=== PATIENT | female | born 1990 | race Caucasian/White ===

== ENCOUNTER 2019-12-17 13:18 | Emergency (ER) | payer OTHER ==
--- NOTE | 2019-12-17 13:40 | TELE ---
HPI Do you have fever,cough or shortness of breath?: No - General Reason For Visit: COVID History Source: Patient Review of Systems - Review of Systems Constitutional: No: Chills, Fever Respiratory: No: Cough, Shortness of Breath Cardiac (ROS): No: Chest Pain - Medical Decision Making 12/17/19 13:40 29 yo F, no sig hx, called requesting covid PCR. No xs. Covid test ordered Discharge Diagnosis at time of Disposition: Encounter by telehealth for suspected COVID-19 - Referrals - Patient Instructions - Discharge Disposition: HOME
== END 2019-12-17 13:51 | disposition home or self-care (01) ==
LOC: JVIRT 13:18
DX: Z03.818 Encounter for observation for suspected exposure to other biological agents ruled out (principal)
CPT/HCPCS: C9803; Q3014-GT; U0003

== ENCOUNTER 2020-05-21 14:54 | Emergency (ER) | payer OTHER | END 2020-05-21 17:38 | disposition home or self-care (01) | LOC: JVIRT 14:54 | DX: Z20.828 Contact with and (suspected) exposure to other viral communicable diseases (principal) | CPT/HCPCS: 87070; 87880; C9803; Q3014-GT; U0003 ==

== ENCOUNTER 2020-10-20 22:47 | Emergency (ER) | payer OTHER ==
[2020-10-20 22:56] VITALS: BP 128/78; PULSE 89; TEMP 98.6; BMI 24.5
[2020-10-21 00:37] LABS: HIV INTERPRETATION NEGATIVE (NEGATIVE)
== END 2020-10-20 23:18 | disposition home or self-care (01) ==
LOC: JER 22:47
DX: Z77.21 Contact with and (suspected) exposure to potentially hazardous body fluids (principal)
CPT/HCPCS: 36415; 86803; 87389; 99283-25

== ENCOUNTER 2021-02-02 19:32 | Emergency (ER) | payer OTHER | END 2021-02-02 19:47 | disposition home or self-care (01) | LOC: JVIRT 19:32 | DX: Z11.52 Encounter for screening for COVID-19 (principal) | CPT/HCPCS: C9803; Q3014-GT; U0003; U0005 ==

== ENCOUNTER 2021-05-11 11:51 | Emergency (ER) | payer OTHER | END 2021-05-11 14:15 | disposition home or self-care (01) | LOC: JVIRT 11:51 | DX: Z11.52 Encounter for screening for COVID-19 (principal) | CPT/HCPCS: C9803; Q3014-GT; U0003; U0005 ==

== ENCOUNTER 2021-05-23 13:48 | Emergency (ER) | payer OTHER | END 2021-05-23 13:57 | disposition home or self-care (01) | LOC: JVIRT 13:48 | DX: U07.1 COVID-19 (principal) | CPT/HCPCS: C9803; Q3014-GT; U0003; U0005 ==